=== PATIENT | female | born 1970 | race Caucasian/White ===

== ENCOUNTER → 2016-06-05 | Outpatient (CLI) | payer BC ==
[~2016-06-05] MED LIST: CALC12502 PO; FERR325T5 PO; IBUP-1450 PO
--- NOTE | 2016-06-06 15:27 | MAMMOGRAPHY REPORT ---
BILATERAL DIGITAL SCREENING MAMMOGRAM TOMOSYNTHESIS WITH CAD: 06/05/2016 CLINICAL HISTORY: Routine screening. Patient has no complaints. TECHNIQUE: Breast tomosynthesis in addition to standard 2D mammography was performed. Current study was also evaluated with a Computer Aided Detection (CAD) system. COMPARISON: Comparison is made to exams dated: 05/31/2015 mammogram, 05/22/2014 mammogram, 07/05/2010 ultrasound biopsy, 06/15/2010 ultrasound, and 06/15/2010 mammogram - [facility]. BREAST COMPOSITION: The tissue of both breasts is heterogeneously dense, which may obscure small ma sses. FINDINGS: There is a 6 x 11 mm asymmetry in the far posterior slightly superior right breast, proje cting over the pectoralis muscle on the MLO view that is increasingly prominent compared to prior ma mmograms. Although this could represent a cyst, additional spot compression tomosynthesis views, in cluding a spot compression exaggerated lateral right CC view and possibly ultrasound recommended. There is a stable metallic biopsy marker in the 12:00 middle one third of the right breast. No othe r suspicious mass, architectural distortion or cluster of microcalcifications is seen bilaterally. IMPRESSION: ACR BI-RADS CATEGORY 0: INCOMPLETE EVALUATION: NEED ADDITIONAL IMAGING EVALUATION The asymmetry in the far posterior, slightly superior right breast needs additional evaluation. The patient will be called to schedule an appointment. Approximately 10% of breast cancers are not detected with mammography. A negative mammographic repor t should not delay biopsy if a clinically suggestive mass is present. Gwen Rodriguez M.D. ay/:06/05/2016 21:40:28 Financial Sales Advisor: Marysol Gold, [facility] letter sent: Addl Imaging 0 BI-RADS Code: ACR BI-RADS Category 0: Incomplete Evaluation: Need Additional Imaging Evaluation
== END | disposition home or self-care (01) ==
LOC: C.MAMM 07:11
PROVIDERS: ATTEND Nurse Practitioner Family
DX: Z12.31 Encounter for screening mammogram for malignant neoplasm of breast (principal)

== ENCOUNTER → 2016-06-14 | Outpatient (CLI) | payer BC ==
--- NOTE | 2016-06-14 13:33 | MAMMOGRAPHY REPORT ---
UNILATERAL RIGHT DIGITAL DIAGNOSTIC MAMMOGRAM TOMOSYNTHESIS AND TARGETED RIGHT ULTRASOUND: 06/14/2016 CLINICAL HISTORY: Callback from screening mammogram for right breast asymmetry. TECHNIQUE: Breast tomosynthesis in addition to standard 2D mammography was performed. Spot leon dimitri right MLO and right X CCL tomosynthesis images including C views were obtained. COMPARISON: Comparison is made to exams dated: 06/05/2016 mammogram, 05/31/2015 mammogram, 05/22/2014 mammogram, 07/05/2010 ultrasound biopsy, 06/15/2010 ultrasound, and 06/15/2010 mammogram - [facility]. BREAST COMPOSITION: The tissue of the right breast is heterogeneously dense, which may obscure smal l masses. FINDINGS: The previously described asymmetry seen within the right superior posterior breast on the MLO view effaces to a baseline appearance on the additional images, with appearance of this region similar to prior exams including the 2015 and 2014 exams. A portion of the asymmetry has the appear ance of normal fibroglandular tissue, while there is also a rounded circumscribed 7 mm benign-appear ing portion which appears slightly more masslike. No correlate is seen on the cc view, however, thi s localizes to the lateral breast based on the tomosynthesis localizer bar. Targeted ultrasound was performed of the right upper outer quadrant in the region of the asymmetry. No suspicious masses or other suspicious sonographic abnormality is evident. A morphologically nor mal intramammary lymph node measuring 4 x 2 x 2 mm is seen within the right 9:00 breast, 14 cm from the nipple, which likely corresponds with the more masslike portion of the asymmetry. Incidentally noted in the right 10:00 breast, 6 cm from the nipple, is a round anechoic circumscribed benign simp le cyst which measures 5 x 4 mm. No suspicious solid masses were evident. IMPRESSION: ACR BI-RADS CATEGORY 2: BENIGN, TARGETED ULTRASOUND ACR BI-RADS CATEGORY 2: BENIGN The right breast asymmetry effaces to a baseline appearance on the additional views, without corresp onding suspicious sonographic abnormalities evident. The asymmetry is benign and felt to represent a combination of normal fibroglandular tissue and a morphologically normal intramammary lymph node. There is no mammographic or targeted sonographic evidence of malignancy. A 1 year screening mammogr am is recommended. The patient has been verbally notified of the results. Approximately 10% of breast cancers are not detected with mammography. A negative mammographic repor t should not delay biopsy if a clinically suggestive mass is present. María Elena Quan M.D. ah/:06/14/2016 10:25:30 Burr Machine Operator: Jaqui COURTNEY)(Patricia), [facility] letter sent: Normal 1/2 BI-RADS Code: ACR BI-RADS Category 2: Benign Ultrasound BI-RADS: ACR BI-RADS Category 2: Benign
== END | disposition home or self-care (01) ==
LOC: C.MAMM 09:24
PROVIDERS: ATTEND Nurse Practitioner Family
DX: N64.89 Other specified disorders of breast (principal)

== ENCOUNTER → 2017-06-11 | Outpatient (CLI) | payer OTHER ==
--- NOTE | 2017-06-11 14:13 | MAMMOGRAPHY REPORT ---
BILATERAL DIGITAL SCREENING MAMMOGRAM TOMOSYNTHESIS WITH CAD: 06/11/2017 CLINICAL HISTORY: Routine screening. Patient has no complaints. TECHNIQUE: Breast tomosynthesis in addition to standard 2D mammography was performed. Current study was also evaluated with a Computer Aided Detection (CAD) system. COMPARISON: Comparison is made to exams dated: 06/14/2016 mammogram, 06/14/2016 ultrasound, 06/05/2016 ma mmogram, 05/31/2015 mammogram, 05/22/2014 mammogram, and 06/15/2010 mammogram - [facility]. BREAST COMPOSITION: The tissue of both breasts is heterogeneously dense, which may obscure small mas ses. FINDINGS: There is a stable intramammary lymph node and stable metallic biopsy marker clip in the rig ht upper outer quadrant. The glandular pattern is similar to prior mammograms. No new suspicious ma ss, architectural distortion or cluster of microcalcifications is seen. IMPRESSION: ACR BI-RADS CATEGORY 1: NEGATIVE There is no mammographic evidence of malignancy. A 1 year screening mammogram is recommended. The pa tient will receive written notification of the results. Approximately 10% of breast cancers are not detected with mammography. A negative mammographic report should not delay biopsy if a clinically suggestive mass is present. Gwen Rodriguez M.D. ay/:06/11/2017 07:48:05 Post Tensioning Ironworker Helper: Marysol MCGOVERN(Carin)(M), [facility] letter sent: Normal 1/2 BI-RADS Code: ACR BI-RADS Category 1: Negative
== END | disposition home or self-care (01) ==
LOC: C.MAMM 07:19
PROVIDERS: ATTEND Nurse Practitioner Family
DX: Z12.31 Encounter for screening mammogram for malignant neoplasm of breast (principal)